=== PATIENT | male | born 1990 | race Caucasian/White ===

== ENCOUNTER 2017-10-11 06:35 | Day surgery (SDC) | payer OTHER ==
[~2017-10-11] VITALS: Ht 190.5 cm; Wt 117.9 kg
--- NOTE | ~2017-10-11 | OP ---
PATIENT NAME: MARY ALICE SULLIVAN MEDICAL RECORD: [id number] :89 LOCATION:[facility] ADMISSION DATE: SURGEON: VERONICA SKY MD DATE OF OPERATION: 10/11/2017 PREOPERATIVE DIAGNOSIS: Medial meniscus tear of the left knee. POSTOPERATIVE DIAGNOSIS: Medial meniscus tear of the left knee. PROCEDURE: Arthroscopic partial medial meniscectomy of left knee. SURGEON: Veronica Sky MD ANESTHESIA: General. INTRAOPERATIVE COMPLICATIONS: None. SUMMARY OF PATHOLOGIC FINDINGS: The patient had a combination of a complex and peripheral tear of the medial meniscus. The root was intact. There was a combination of horizontal cleavage plane tearing as well as a sagittal split. OPERATIVE SUMMARY IN DETAIL: After obtaining the appropriate preoperative orthopedic surgery consent as well as anesthetic consultation, evaluation and clearance, the patient was brought to the operating room and placed on the operating table in supine position. After general laryngeal mask airway was administered, tourniquet was placed in the proximal aspect of left lower extremity. Left lower extremity was then prepped and draped in routine sterile fashion. Leg was exsanguinated, tourniquet inflated to 350 mmHg. Routine inferolateral portal was established followed by superior medial and inferomedial portal. Diagnostic arthroscopy did reveal the above findings. 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 This was photographed intraoperatively, it did require mild debridement; however, formal chondroplasty was not needed. The medial meniscus was approached. The tear was identified, deep subsurface tear with a sagittal split. Combination of meniscotomes as well as the arthroscopic resector were utilized to debride this meniscus back to stable meniscal elements. There was one small area of chondromalacia along the deep posterior lateral aspect of the medial compartment and then the area of chondromalacia was likely caused by the meniscal tear. Very small fissuring was noted. Having completed the arthroscopic partial medial meniscectomy, the knee was insufflated with 30 mL of 0.25% Marcaine with epinephrine. Arthroscopy portals were closed in routine interrupted fashion using 4-0 Prolene. Sterile dressings were applied. Tourniquet was deflated. The patient was awakened and taken to the recovery room in stable condition. All final needle and sponge counts were correct. TRANSINT:[id number] Voice Confirmation ID: [id number] DOCUMENT ID: [id number] OPERATIVE REPORT [id number] MARY ALICE SULLIVAN MD, VERONICA FERNANDEZ at 1438 CC: [id number] DICTATION DATE: 10/11/17 0953 HAND I THERMAL CUTTER: 10/11/17 1038 [facility] 10/11/17 [place] [id number] [place] [id number]
[2017-10-11 08:14] VITALS: BP 106/55; Ht 190.5 cm; Wt 117.9 kg
[2017-10-11] MEDS ORDERED: HYDROCODONE-APA1 TAB PO (09:46)
== END 2017-10-11 11:30 | disposition home or self-care (01) ==
LOC: D.OPS 06:35 → D.PAN 07:30 → D.OPS 07:30 → D.PAN 08:30 → D.OPS 11:30
DX: S83.232A Complex tear of medial meniscus, current injury, left knee, initial encounter (principal); Z01.812 Encounter for preprocedural laboratory examination